=== PATIENT | male | born 1955 | race Caucasian/White ===

== ENCOUNTER 2018-04-03 20:49 | Emergency (ER) | payer SELFPAY ==
[2018-04-03] MEDS ORDERED: ONDANSETRON 4 MG/2 ML VIAL ONE (21:22)
[2018-04-03] MEDS ORDERED: MORPHINE 4 MG/ML SYR ONE (21:22)
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
--- NOTE | 2018-04-03 21:28 | RAD REPORT ---
EXAM DESCRIPTION: RAD - Chest Single View - 04/03/2018 9:15 pm CLINICAL HISTORY: Chest pain. COMPARISON: 12/01/2015 FINDINGS: Portable technique limits examination quality. The lungs are grossly clear. The heart is normal in size. No displaced fractures. IMPRESSION: No acute intrathoracic process suspected.
[2018-04-03] MEDS ORDERED: NA CHLORIDE 0.9% 1,000 ML ONE (21:33)
[2018-04-03] MEDS ORDERED: TETANUS & DIPHTHERIA TOX,ADULT 0.5 ML VIAL ONE (21:33)
[2018-04-03 21:36] LABS: Absolute Lymphocytes (CBC) 8.1 K/uL (0.7-4.9); Absolute Monocytes 0.7 K/uL (0.1-1.3); Absolute Neutrophil 6.5 K/uL (1.8-8.0); Basophils % 0.5 % (0-1.3); Eosinophils % 0.9 % (0-4.4); Hematocrit 41.8 % (39.6-49.0); Lymphocytes % 52.3 % (15.3-44.8); MCH 30.3 pg (27.0-35.0); MPV 8.9 fL (7.6-11.3); Monocytes % 4.3 % (3.3-12.3); RBC Red Blood Cell Count 4.65 M/uL (4.33-5.43)
[2018-04-03 21:43] LABS: Protime INR 0.94
[2018-04-03 21:49] LABS: Bicarbonate 28 mEq/L (21-31); Glucose Level 142 mg/dL (65-120); Potassium 4.3 mEq/L (3.6-5.0); Sodium Level 138 mEq/L (135-145)
[2018-04-03 21:55] LABS: ALT/SGPT 30 IU/L (10-60); AST/SGOT 33 IU/L (10-42); Albumin 4.2 g/dL (3.2-5.5); Alkaline Phosphatase 68 IU/L (42-121); BUN Blood Urea Nitrogen 21 mg/dL (6-20); Bilirubin Direct 0.1 mg/dL (0-0.2); Bilirubin Total 0.4 mg/dL (0.3-1.2); Creatine Phosphokinase 143 IU/L (22-269); Magnesium 2.2 mg/dL (1.8-2.5); Protein, Total 6.5 g/dL (6.0-8.3)
[2018-04-03 21:58] LABS: CKMB Creatine Kinase MB 2.6 ng/ml (0.3-4.0)
[2018-04-03] MEDS ORDERED: HYDROCODONE/APAP 5/325 MG TAB ONE (22:02)
[2018-04-03] MEDS ORDERED: LIDOCAINE 1% 20 ML MDV ONE (22:04)
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
--- NOTE | 2018-04-03 22:44 | EDPHYS ---
Physician Documentation [facility] Name: Rigoberto Olvera Age: 62 yrs Sex: Male : 1955 Arrival Date: 04/03/2018 Time: 20:59 Bed 5 Private MD: ED Physician Ubaldo Rios HPI: 04/03 21:04 This 62 yrs old Male presents to ER via Unassigned with unknown complaint. pkl 21:04 Details of fall: The patient fell from an upright position, while standing. Details of pkl fall: The patient fell from an upright position, Patient said he fell backward. Onset: The symptoms/episode began/occurred just prior to arrival. Associated injuries: The patient sustained injury to the head, contusion, laceration, of the occipital scalp. Historical: - Allergies: 21:06 PENICILLINS; aa1 21:06 Cephalexin; aa1 21:06 Zithromax; aa1 - Home Meds: 21:06 None [Active]; aa1 - PMHx: 21:06 None; aa1 - PSHx: 21:06 None; aa1 - Immunization history:: Last tetanus immunization: unknown. - Social history:: Smoking status: Patient/guardian denies using tobacco. - Immunization history: Last tetanus immunization: unknown. - Ebola Screening: : No symptoms or risks identified at this time. ROS: 21:04 Eyes: Negative for injury, pain, redness, and discharge, ENT: Negative for injury, pkl pain, and discharge, Neck: Negative for injury, pain, and swelling, Cardiovascular: Negative for chest pain, palpitations, and edema, Respiratory: Negative for shortness of breath, cough, wheezing, and pleuritic chest pain, Abdomen/GI: Negative for abdominal pain, nausea, vomiting, diarrhea, and constipation, Back: Negative for injury and pain, : Negative for injury, bleeding, discharge, and swelling, MS/Extremity: Negative for injury and deformity, Skin: Negative for injury, rash, and discoloration, Neuro: Negative for headache, weakness, numbness, tingling, and seizure. Exam: 22:35 Eyes: Pupils equal round and reactive to light, extra-ocular motions intact. Lids and pkl lashes normal. Conjunctiva and sclera are non-icteric and not injected. Cornea within normal limits. Periorbital areas with no swelling, redness, or edema. 22:35 Head/face: Noted is a laceration(s), 3 cm(s), of the occipital scalp. 22:35 ENT: Exam is negative for acute changes. 22:35 Neck: Exam negative for nuchal rigidity. 22:35 Chest/axilla: Exam negative for acute changes. 22:35 Cardiovascular: Rate: normal, Rhythm: regular. 22:35 Respiratory: the patient does not display signs of respiratory distress, Respirations: normal, Breath sounds: are clear throughout. 22:35 Abdomen/GI: Bowel sounds: normal, Palpation: abdomen is soft and non-tender, in all quadrants. 22:35 Back: Exam negative for acute changes. 22:35 : Exam negative for acute changes. 22:35 Musculoskeletal/extremity: Exam is negative for acute changes, injury. 22:35 Skin: Exam negative for rash. 22:35 Neuro: Orientation: appropriate for stated age, Mentation: is normal, Cranial nerves: grossly normal, Motor: is normal. Vital Signs: 21:00 BP 148 / 80; Pulse 74; Resp 18; Temp 97.9; Pulse Ox 100% on R/A; Weight 61.23 kg (R); aa1 Height 5 ft. 9 in. (175.26 cm) (R); Pain 9/10; 21:42 BP 154 / 81; Pulse 71; Resp 18; Pulse Ox 99% on R/A; Pain 8/10; aa1 22:24 BP 150 / 62; Pulse 79; Resp 18; Pulse Ox 100% on R/A; Pain 4/10; mg2 21:00 Body Mass Index 19.94 (61.23 kg, 175.26 cm) aa1 [place] Coma Score: 21:00 Eye Response: spontaneous(4). Verbal Response: oriented(5). Motor Response: obeys aa1 commands(6). Total: 15. 21:42 Eye Response: spontaneous(4). Verbal Response: oriented(5). Motor Response: obeys aa1 commands(6). Total: 15. 22:24 Eye Response: spontaneous(4). Verbal Response: oriented(5). Motor Response: obeys mg2 commands(6). Total: 15. Trauma Score (Adult): 21:00 Eye Response: spontaneous(1); Verbal Response: oriented(1); Motor Response: obeys aa1 commands(2); Systolic BP: > 89 mm Hg(4); Respiratory Rate: 10 to 29 per min(4); [place] Score: 15; Trauma Score: 12 Laceration: 22:35 Wound Repair of 3cm ( 1.2in ) subcutaneous laceration to occipital scalp. Minimal pkl bleeding noted.. Distal neuro/vascular/tendon intact. Anesthesia: Local anesthetic administered with 3 mls of 1% lidocaine. Wound prep: Extensive cleansing by me. Skin closed with 3 4-0 Prolene using simple sutures and sterile technique. Dressed with Neosporin. Patient tolerated well. MDM: 21:01 Patient medically screened. pkl 22:38 Data reviewed: vital signs, nurses notes, lab test result(s), EKG, radiologic studies, pkl CT scan, plain films. 04/03 21:07 Order name: Basic Metabolic Panel; Complete Time: 22:00 pkl 12 21:07 Order name: BNP; Complete Time: 22:00 pkl 04/03 21:07 Order name: CBC with Diff; Complete Time: 21:49 pkl 04/03 21:07 Order name: Ckmb; Complete Time: 22:00 pkl 12 21:07 Order name: CPK; Complete Time: 22:00 pkl 12 21:07 Order name: LFT's; Complete Time: 22:00 pkl 12 21:07 Order name: Magnesium; Complete Time: 22:00 pkl 12 21:07 Order name: PT-INR; Complete Time: 22:00 pkl 12 21:07 Order name: Ptt, Activated; Complete Time: 22:00 pkl 12 21:07 Order name: Troponin (emerg Dept Use Only); Complete Time: 22:00 pkl 12 21:07 Order name: XRAY Chest (1 view); Complete Time: 21:49 pkl /12 21:08 Order name: CT Head C Spine; Complete Time: 21:49 pkl 12 21:07 Order name: EKG; Complete Time: 21:08 pkl 12 21:07 Order name: Cardiac monitoring; Complete Time: 21:43 pkl 04/03 21:07 Order name: EKG - Nurse/Tech; Complete Time: 21:43 pkl 04/03 21:07 Order name: IV Saline Lock; Complete Time: 21:43 pkl 06 21:07 Order name: Labs collected and sent; Complete Time: 21:43 pkl 04/03 21:07 Order name: O2 Per Protocol; Complete Time: 21:43 pkl 06 21:07 Order name: O2 Sat Monitoring; Complete Time: 21:43 pkl Administered Medications: 21:20 Drug: Zofran 4 mg Route: IVP; Site: left antecubital; aa1 23:29 Follow up: Response: No adverse reaction; Nausea is decreased mg2 21:22 Drug: morphine 2 mg Route: IVP; Site: left antecubital; aa1 22:02 Follow up: Response: No adverse reaction; Pain is unchanged, physician notified aa1 21:48 Drug: Tetanus-Diphtheria Toxoid Adult 0.5 ml {[employer]: [employer]. Exp: mg2 06/21/2020. Lot #: [id number]. } Route: IM; Site: right deltoid; 23:29 Follow up: Response: No adverse reaction mg2 21:48 Drug: NS 0.9% 1000 ml Route: IV; Rate: 100 ml/hr; Site: right antecubital; mg2 23:29 Follow up: Response: No adverse reaction; IV Status: Infusion continued upon transfer mg2 22:02 Drug: [place] 5 mg-325 mg 1 tabs Route: PO; aa1 23:29 Follow up: Response: No adverse reaction; Pain is decreased mg2 Disposition: 04/03/18 22:43 Transfer ordered to [facility]. Diagnosis is Head injury. Laceration scalp. Intracranial bleed. S/P Fall. - Reason for transfer: Higher level of care. - Accepting physician is Dr. Lee. - Condition is Stable. - Problem is new. - Symptoms have improved. Signatures: Dispatcher [employer] EDMS Hermila Echevarria RN RN aa1 Ubaldo Rios MD MD pkl Davin Vincent RN RN mg2 Corrections: (The following items were deleted from the chart) 23:30 22:43 04/03/2018 22:43 Transfer ordered to [facility]. mg2 Diagnosis is Head injury. Laceration scalp. Intracranial bleed. S/P Fall. Reason for transfer: Higher level of care. Accepting physician is Dr. Lee. Condition is Stable. Problem is new. Symptoms have improved. pkl
--- NOTE | 2018-04-04 06:20 | EKG ---
Test Date: 2018-04-03 Test Time: 21:38:48 Merchandise Clerk: LEVAR MEASUREMENT RESULTS: Intervals: Rate: 71 TN: 164 QRSD: 88 QT: 396 QTc: 430 Coleman: P: 75 TN: 164 QRS: 70 T: 65 INTERPRETIVE STATEMENTS: Normal sinus rhythm Minimal voltage criteria for LVH, may be normal variant Borderline ECG Compared to ECG 12/01/2015 20:56:18 No significant changes Electronically Signed On 04-04-18 06:19:26 CDT by Kristian Saunders
== END 2018-04-03 23:30 | disposition short-term general hospital (02) ==
LOC: ER 20:49
PROC: 0JQ00ZZ Repair Scalp Subcutaneous Tissue and Fascia, Open Approach (ICD-10-PCS; principal; 2018-04-03)
DX: S06.300A Unspecified focal traumatic brain injury without loss of consciousness, initial encounter (principal); W18.39XA Other fall on same level, initial encounter; Y93.89 Activity, other specified; Y92.9 Unspecified place or not applicable; Z88.1 Allergy status to other antibiotic agents; Z88.3 Allergy status to other anti-infective agents; Z88.0 Allergy status to penicillin; Z23 Encounter for immunization
CPT/HCPCS: 36415; 70450; 71045; 72125; 80048; 80076; 82550; 82553; 83735; 83880; 84484; 85025; 85610; 85730; 90714; 93005; 96361; 96374; 96375; 99285; J2405; J7030

== ENCOUNTER 2019-09-27 19:57 | Emergency (ER) | payer SELFPAY ==
--- OUTSIDE RECORDS SUMMARY | 2019-09-27 19:58 | XMS REPORT ---
:1955 Author Organization [facility] Address [address] [place]. [address] [place] [id number] Care Team Providers Name Role Phone Unavailable Unavailable Unavailable Problems This patient has no known problems. Allergies, Adverse Reactions, Alerts This patient has no known allergies or adverse reactions. Medications This patient has no known medications.
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
[2019-09-27] MEDS ORDERED: KETOROLAC 30 MG/ML INJ ONE (22:22)
[2019-09-27] MEDS ORDERED: NA CHLORIDE 0.9% 1,000 ML ONE (22:22)
[2019-09-27] MEDS ORDERED: ONDANSETRON 4 MG/2 ML VIAL ONE (22:22)
[2019-09-27] MEDS ORDERED: MORPHINE 4 MG/ML SYR ONE (22:22)
[2019-09-27 23:05] LABS: Absolute Lymphocytes (CBC) 4.4 K/uL (0.7-4.9); Basophils % 0.2 % (0-1.3); Hematocrit 42.2 % (39.6-49.0); Lymphocytes % 40.8 % (15.3-44.8); MPV 8.8 fL (7.6-11.3); RBC Red Blood Cell Count 4.67 M/uL (4.33-5.43)
[2019-09-27 23:14] LABS: ALT/SGPT 50 U/L (12-78); AST/SGOT 34 U/L (15-37); Albumin 3.8 g/dL (3.4-5.0); Alkaline Phosphatase 78 U/L (45-117); BUN Blood Urea Nitrogen 31 mg/dL (7-18); Bicarbonate 29 mmol/L (21-32); Bilirubin Direct 0.1 mg/dL (0-0.2); Bilirubin Total 0.5 mg/dL (0.2-1.0); Glucose Level 96 mg/dL (74-106); Lipase 112 U/L (73-393); Potassium 3.3 mmol/L (3.5-5.1); Protein, Total 6.6 g/dL (6.4-8.2); Sodium Level 141 mmol/L (136-145)
[2019-09-28 01:09] VITALS: TEMP 97.5
[2019-09-28 01:14] VITALS: BP 140/99; O2SAT 99
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
--- NOTE | 2019-09-28 07:28 | RAD REPORT ---
EXAM DESCRIPTION: RAD - Lumbar Spine 3 Views - 09/27/2019 10:30 pm CLINICAL HISTORY: Back pain FINDINGS: The alignment of the lumbar spine is satisfactory. No fracture or dislocation is seen.
--- NOTE | 2019-09-28 10:49 | RAD REPORT ---
EXAM DESCRIPTION: Sara Single View09/27/2019 10:30 pm CLINICAL HISTORY: Chest pain COMPARISON: 2018 FINDINGS: The lungs appear clear of acute infiltrate. The heart is normal size IMPRESSION: No acute abnormalities displayed
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
== END 2019-09-28 00:10 | disposition short-term general hospital (02) ==
LOC: ER 19:57
DX: S12.200A Unspecified displaced fracture of third cervical vertebra, initial encounter for closed fracture (principal); S16.1XXA Strain of muscle, fascia and tendon at neck level, initial encounter; S50.01XA Contusion of right elbow, initial encounter; S60.211A Contusion of right wrist, initial encounter; E87.6 Hypokalemia; V23.4XXA Motorcycle driver injured in collision with car, pick-up truck or van in traffic accident, initial encounter; Z72.0 Tobacco use; Z88.0 Allergy status to penicillin; Z88.1 Allergy status to other antibiotic agents
CPT/HCPCS: 36415; 70450; 71045; 71260; 72100; 72125; 74177; 80048; 80076; 83690; 85025; 86850; 86900; 86901; 96361; 96374; 96375; 99285; J2405; J7030; Q9967

== ENCOUNTER 2022-06-23 03:16 | Emergency (ER) | payer OTHER, SELFPAY ==
--- OUTSIDE RECORDS SUMMARY | 2022-06-23 03:19 | XMS REPORT | Continuity of Care Document ---
:1955 Author Organization [facility] t Address [facility] Fredi Zhao [address] [place] [address] Care Team Providers Name Role Phone PCP, PATIENT DOES NOT HAVE A Primary Care Physician Unavaila ble JEAN FERNANDO Attending Clinician Unavailable Jean Fernando MD Attending Clinician JEAN FERNANDO Admitting Clinician Unavailable Payers Payer Name Policy Type Policy Number Effective Date Expiration Date [facility] [id number] 2022 CUSTODIAL 00:00:00 Problems Condition Condition Condition Status Onset Resolution Last Treating Co mments Source Name Details Category Date Date Treatment Clinician Date Elevated Elevated Disease Active Unive rs white white 3- [place] [facility] Pituitary Pituitary Disease Active Uni vers tumor tumor 01-12 ity of 00:00: [place] 00 Medical Branch Hypothyroi Hypothyroi Disease Active U nivers dism dism 01-12 ity of 00:00: [place] 00 Medical Branch Allergies, Adverse Reactions, Alerts Allergy Allergy Status Severity Reaction(s) Onset Inactive Treating Comm ents Source Name Type Date Date Clinician Penicill Propensi Active Other - See U nivers in ty to comments 04-22 ity of adverse 00:00: [place] reaction 00 Medical s Branch PENICILL DRUG Active Other-Cmnt Univ ers IN INGREDI 04-22 ity of 00:00: [place] 00 Medical Branch CEPHALEX DRUG Active Rash Univers IN INGREDI 2 ity of 00:00: [place] 00 Medical Branch AZITHROM DRUG Active Rash Univers YCIN INGREDI 2 ity of 00:00: [place] 00 Medical Branch Cephalex Drug Active Rash Univers in Intolera 2-12 ity of nce 00:00: [place] 00 Medical Branch Azithrom Drug Active Rash Univers ycin Intolera 2-12 ity of nce 00:00: [place] 00 Medical Branch Penicill Propensi Active Rash Univer s ins ty to 2-10 ity of adverse 00:00: [place] reaction 00 Medical s to Branch drug PENICILL Drug Active High Rash Univers INS Class 2-10 ity of 00:00: [place] 00 Medical Branch Social History Social Habit Start Date Stop Date Quantity Comments Source Exposure to 2022-04-12 2022-04-22 Not sure [facility] SARS-CoV-2 (event) 00:00:00 02:50:00 Medica l Branch Alcohol intake 2016-08-29 2016-08-29 0 /d [facility] 00:00:00 00:00:00 Medical Branch Sex [facility]igned At [birth year] [facility] [place] 00:00:00 00:00:00 Medical Branch Smoking Status Start Date Stop Date Source Never smoker [facility] Branch Medications Ordered Filled Start Stop Current Ordering Indication Dosage Frequency Signature Comments Components Source Medication Medication Date Date Medication? Clinician (SIG) Name Name acetaminoph 2021- No 975mg 975 mg, U nivers en 04-22 Oral, ity of (TYLENOL) 10:00: 08:55 ONCE, 1 [place] tablet 975 [place] :00 dose, On Medic al mg 04/22/22 Branch at 0500, RICHARD clindamycin 2021- Yes [id number] 300mg Take 1 Univers 300 mg 04-22 capsule by ity of capsule 00:00: 04:59 mouth 4 [place] 00 :00 (four) Medical times Branch daily for 7 days. paroxetine 2017-10 Yes [id number] 60mg Take 2 U nivers 30 mg 2-17 tablets by ity of tablet 00:00: mouth [place] 00 daily. Medical Branch traZODONE Yes [id number] Take 1-2 Univers 50 mg 6-15 tabs at ity of tablet 00:00: night as [place] 00 needed for Medical sleep Branch hydrOXYzine Yes [id number] 50mg Take 1 Univers 50 mg 8-29 tablet by ity of tablet 00:00: mouth [place] 00 every 6 Medical (six) Branch hours as needed for Anxiety. traMADOL 2015-10 Yes 50mg Take 1 Univers (ULTRAM) 50 1-07 tablet by ity of mg tablet 00:00: mouth [place] 00 every 6 Medical (six) Branch hours as needed for Pain unrelieved by non-narcot ic analgesics for up to 120 doses. naproxen 2014-10 Yes [id number] 500mg Take 1 Tab Univers (NAPROSYN) 1-10 by mouth 2 ity of 500 mg 00:00: (two) [place] tablet 00 times Medical daily with Branch meals. topiramate 2014-10 Yes [id number] Take 25 mg Univers (TOPAMAX) 1-10 po daily ity of 50 mg 00:00: for 1 [place] tablet 00 week, then Medical 25 mg po Branch bid for 1 month, then 25 mg po in am and 50 mg po qhs for 1 month, then 5o mg po bid. Butalbital- Yes 50mg Take 50 mg Univers Acetaminoph 5-13 by mouth 2 it y of en-Caff 00:00: (two) [place] (FIORICET) 00 times Medical 50-300-40 daily as Branch mg Cap needed for Headache (Take no more then 2 days a week.No more then 18 caps a month.). Immunizations Ordered Filled Immunization Date Status Comments [facility] e Immunization Name Name Td 2022-04-22 Completed [facility] 00:00:00 [facility] Vital Signs Vital Name Observation Time Observation Value Comments Source Systolic blood 2022-04-22 10:00:00 130 [facility]Hg[facility] Diastolic blood 2022-04-22 10:00:00 68 mm[Hg] [facility] Heart rate 2022-04-22 10:00:00 89 /min [facility] Respiratory rate 2022-04-22 10:00:00 18 /min [facility] Oxygen saturation in 2022-04-22 10:00:00 96 /min [facility] Arterial blood by [facility] Pulse oximetry [place] Body temperature 2022-04-22 07:52:00 36.61 Rody [facility] Body height 2022-04-22 07:52:00 175.3 cm [facility] Body weight 2022-04-22 07:52:00 60.328 kg [facility] BMI 2022-04-22 07:52:00 19.64 kg/m2 [facility] Procedures Procedure Date / Time Performed Performing Clinician Sourc e CT RESUP NPTERF WND 2022-04-22 10:10:16 Jean Fernando [facility] BODY 2.6-7.5 CM [facility] Branch CT CERVICAL SPINE WO 2022-04-22 08:43:00 eJan Fernando [facility] CONTRAST [facility] CT 2022-04-22 08:43:00 Jean Fernando [place] MAXILLOFACIAL/MANDIBL Medical Br anch E WO CONTRAST CT HEAD WO CONTRAST 2022-04-22 08:43:00 Jean Fernando [facility] Encounters Start End Encounter Admission Attending Care Care Encounter Source Date/Time Date/Time Type Type Clinicians Facility Department ID 2022-04-22 2022-04-22 Emergency X KASSIE NHKRYSTAL ERT [id number] Univers 02:54:00 05:35:00 JEAN lindsey [facility] 2022-04-22 2022-04-22 Emergency Kassie NHKRYSTAL [id number] Univers 02:54:00 05:35:00 Jean GAITAN [id number] i [facility] [id number] [facility] [id number] [facility] 084 Branch Results This patient has no known results.
--- NOTE | 2022-06-23 04:58 | ER ---
Nurse's Notes [facility] Name: Rigoberto Olvera Age: 67 yrs Sex: Male : 1955 Arrival Date: 06/23/2022 Time: 03:20 Bed 8 Private MD: Diagnosis: Headache Presentation: 06/23 03:42 Chief complaint: Patient states: States "I have a tumor on my pituitary gland, they 3 told me to get an MRI every year but I haven't had insurance until now" c/o of H/A, states "It's been keeping me up at night". Coronavirus screen: Vaccine status: Patient reports being unvaccinated. At this time, the client does not indicate any symptoms associated with coronavirus-19. Ebola Screen: No symptoms or risks identified at this time. Initial Sepsis Screen: Does the patient meet any 2 criteria? No. Patient's initial sepsis screen is negative. Does the patient have a suspected source of infection? No. Patient's initial sepsis screen is negative. Risk Assessment: Do you want to hurt yourself or someone else? Patient reports no desire to harm self or others. Onset of symptoms is unknown. 03:42 Method Of Arrival: Ambulatory ll3 03:42 Acuity: JAVIER 3 ll3 Triage Assessment: 03:45 Headache History: The patient has had previous headaches and this one is similar to ll3 previous episodes. General: Appears uncomfortable, Behavior is calm, cooperative. Pain: Complains of pain in H/A Pain currently is 7 out of 10 on a pain scale. Pain: Pain began States H/A for past 20 years but the past few months they have been more frequent Also complains of sleeplessness. Neuro: Level of Consciousness is awake, alert, obeys commands, Oriented to person, place, time, situation, Reports headache. Derm: Skin is pink, warm \\T\\ dry. Musculoskeletal: Circulation, motion, and sensation intact. Historical: - Allergies: 03:45 No Known Allergies; ll3 - Immunization history:: Client reports having NOT received the Covid vaccine. - Social history:: Smoking status: Patient denies any tobacco usage or history of. - Family history:: not pertinent. - Hospitalizations: : No recent hospitalization is reported. Screenin:02 Abuse screen: Denies threats or abuse. Denies injuries from another. Nutritional lg3 screening: No deficits noted. Tuberculosis screening: No symptoms or risk factors identified. Fall Risk None identified. Assessment: 04:02 General: Appears in no apparent distress. comfortable, unkempt, Behavior is calm, lg3 cooperative. Pain: Complains of pain in head Pain currently is 7 out of 10 on a pain scale. Quality of pain is described as heavy, pressure, squeezing. Neuro: No deficits noted. Level of Consciousness is awake, alert, obeys commands, Oriented to person, place, time, situation. Cardiovascular: No deficits noted. Denies chest pain, shortness of breath, Capillary refill < 3 seconds Clubbing of nail beds is absent JVD is absent Patient's skin is warm and dry. Respiratory: No deficits noted. Airway is patent Trachea midline Respiratory effort is even, unlabored, Respiratory pattern is regular, symmetrical, Breath sounds are clear bilaterally. GI: No deficits noted. No signs and/or symptoms were reported involving the gastrointestinal system. Abdomen is flat, non-distended. : No deficits noted. No signs and/or symptoms were reported regarding the genitourinary system. EENT: No deficits noted. No signs and/or symptoms were reported regarding the EENT system. Derm: No deficits noted. No signs and/or symptoms reported regarding the dermatologic system. Skin is intact, is healthy with good turgor, Skin is dry, Skin temperature is warm. Musculoskeletal: No deficits noted. No signs and/or symptoms reported regarding the musculoskeletal system. Circulation, motion, and sensation intact. Range of motion: intact in all extremities. 04:04 General: pt reports having a continuous headache for the past 20 years. . lg3 04:50 Reassessment: Patient appears in no apparent distress at this time. No changes from lg3 previously documented assessment. Patient and/or family updated on plan of care and expected duration. Pain level reassessed. Patient is alert, oriented x 3, equal unlabored respirations, skin warm/dry/pink. pt quietly resting at this time. Vital Signs: 03:42 BP 111 / 95; Pulse 82; Resp 17; Temp 97.9(O); Pulse Ox 100% on R/A; Weight 63.5 kg (R); ll3 Height 5 ft. 9 in. (175.26 cm) (R); Pain 7/10; 05:20 BP 116 / 84; Pulse 81; Resp 17 S; Pulse Ox 100% on R/A; lg3 03:42 Body Mass Index 20.67 (63.50 kg, 175.26 cm) ll3 [place] Coma Score: 04:56 Eye Response: spontaneous(4). Verbal Response: oriented(5). Motor Response: obeys rn commands(6). Total: 15. ED Course: 03:20 Patient arrived in ED. ja2 03:23 Emerson Fenton MD is Attending Physician. rn 03:24 Yolie Qureshi, GARO is Primary Nurse. lg3 03:45 Triage completed. ll3 03:45 Arm band placed on Patient placed in an exam room, on a stretcher, on pulse oximetry. ll3 03:59 CT Head Brain wo Cont In Process Unspecified. EDMS 04:02 Patient has correct armband on for positive identification. Bed in low position. Call lg3 light in reach. Side rails up X 1. Client placed on continuous cardiac and pulse oximetry monitoring. NIBP monitoring applied. Door closed. Noise minimized. Warm blanket given. 05:19 No provider procedures requiring assistance completed. Patient did not have IV access lg3 during this emergency room visit. Administered Medications: 05:20 Drug: Tylenol 1000 mg Route: PO; lg3 05:21 Follow up: Response: No adverse reaction lg3 Medication: 05:20 VIS not applicable for this client. lg3 Outcome: 04:57 Discharge ordered by . rn 05:19 Discharged to Unknown lg3 05:19 Condition: stable 05:19 Discharge instructions given to patient, Instructed on discharge instructions, follow up and referral plans. Demonstrated understanding of instructions, follow-up care. 05:21 Patient left the ED. lg3 Signatures: Dispatcher [employer] EDPR Emerson Fenton MD MD rn Gibson, Lacie, RN RN lg3 Alecia Bridges [facility] John Marquez RN RN ll3
--- NOTE | 2022-06-23 04:58 | EDPHYS ---
Physician Documentation [facility] Name: Rigoberto Olvera Age: 67 yrs Sex: Male : 1955 Arrival Date: 06/23/2022 Time: 03:20 Bed 8 Private MD: ED Physician Emerson Fenton HPI: 06/23 03:59 This 67 yrs old Male presents to ER via Ambulatory with complaints of Headache. rn 03:59 The patient complains of pain to the top of head. The patient describes the headache as rn aching. Onset: The symptoms/episode began/occurred 20 year(s) ago. Associated signs and symptoms: Pertinent positives: This patient does not have any pertinent positive signs or symptoms associated with a headache. Pertinent negatives: altered mental status, fever, neck stiffness, rash, vision changes, vision loss, vomiting, weakness, vertigo. Severity of symptoms: At its worst the pain was moderate, "similar to past headaches", in the emergency department the pain has improved. The symptoms are alleviated by nothing. the symptoms are aggravated by nothing. The patient has experienced similar episodes in the past, chronically. The patient has not recently seen a physician. Pt reports headaches for 20 years, getting worse over last 2 years. No recent injury. No focal neuro complaints. No vision changes or loss. Told 18 years ago that he has a pituitary tumor but did not need surgery. Hasn't had an MRI in a while so came in to see if we could evaluate his tumor. No new symptoms. . Historical: - Allergies: 03:45 No Known Allergies; ll3 - Immunization history:: Client reports having NOT received the Covid vaccine. - Social history:: Smoking status: Patient denies any tobacco usage or history of. - Family history:: not pertinent. - Hospitalizations: : No recent hospitalization is reported. ROS: 03:59 Constitutional: Negative for fever, chills, and weight loss, Eyes: Negative for injury, rn pain, redness, and discharge, ENT: Negative for injury, pain, and discharge, Neck: Negative for injury, pain, and swelling, Cardiovascular: Negative for chest pain, palpitations, and edema, Respiratory: Negative for shortness of breath, cough, wheezing, and pleuritic chest pain, Abdomen/GI: Negative for abdominal pain, nausea, vomiting, diarrhea, and constipation, Back: Negative for injury and pain, MS/Extremity: Negative for injury and deformity, Skin: Negative for injury, rash, and discoloration, Neuro: Negative for weakness, numbness, tingling, and seizure. Exam: 03:59 Constitutional: This is a well developed, well nourished patient who is awake, alert, rn and in no acute distress. Head/Face: Normocephalic, atraumatic. Eyes: Pupils equal round and reactive to light, extra-ocular motions intact. Neck: Trachea midline, no thyromegaly or masses palpated, and no cervical lymphadenopathy. Supple, full range of motion without nuchal rigidity, or vertebral point tenderness. No Meningismus. Cardiovascular: Regular rate and rhythm. No pulse deficits. Respiratory: No increased work of breathing, no retractions or nasal flaring. Abdomen/GI: Soft, non-tender Skin: Warm, dry MS/ Extremity: Pulses equal, no cyanosis. Neurovascular intact. Full, normal range of motion. Equal circumference. Neuro: Awake and alert, GCS 15, oriented to person, place, time, and situation. Cranial nerves II-XII grossly intact. Motor strength 5/5 in all extremities. Sensory grossly intact. Cerebellar exam normal. Normal gait. Vital Signs: 03:42 BP 111 / 95; Pulse 82; Resp 17; Temp 97.9(O); Pulse Ox 100% on R/A; Weight 63.5 kg (R); ll3 Height 5 ft. 9 in. (175.26 cm) (R); Pain 7/10; 05:20 BP 116 / 84; Pulse 81; Resp 17 S; Pulse Ox 100% on R/A; lg3 03:42 Body Mass Index 20.67 (63.50 kg, 175.26 cm) ll3 [place] Coma Score: 04:56 Eye Response: spontaneous(4). Verbal Response: oriented(5). Motor Response: obeys rn commands(6). Total: 15. MDM: 03:23 Patient medically screened. rn 04:56 Differential diagnosis: migraine, neoplasm, tension headache, vasomotor headache. Data rn reviewed: vital signs, nurses notes, radiologic studies, CT scan, and as a result, I will discharge patient. Counseling: I had a detailed discussion with the patient and/or guardian regarding: the historical points, exam findings, and any diagnostic results supporting the discharge/admit diagnosis, radiology results, the need for outpatient follow up, to return to the emergency department if symptoms worsen or persist or if there are any questions or concerns that arise at home. Special discussion: I discussed with the patient/guardian in detail that at this point there is no indication for admission to the hospital. It is understood, however, that if the symptoms persist or worsen the patient needs to return immediately for re-evaluation. Based on the history and exam findings, there is no indication for further emergent testing or inpatient evaluation. I discussed with the patient/guardian the need to see the primary care provider for further evaluation of the symptoms. 04:56 Special discussion: Further emergent ED testing is not indicated at this point in time. rn I discussed with the patient/guardian in detail the need to arrange with the PCP or specialist further outpatient testing, MRI. 06/23 03:39 Order name: CT Head Brain wo Cont rn Administered Medications: 05:20 Drug: Tylenol 1000 mg Route: PO; lg3 05:21 Follow up: Response: No adverse reaction lg3 Disposition Summary: 06/23/22 04:57 Discharge Ordered Location: Home rn Problem: chronic rn Symptoms: are unchanged rn Condition: Stable rn Diagnosis - Headache rn Followup: rn - With: Private Physician - When: As needed - Reason: Recheck today's complaints, Re-evaluation by your physician Discharge Instructions: - Discharge Summary Sheet rn - General Headache Without Cause rn Forms: - Medication Reconciliation Form rn - Thank You Letter rn - Antibiotic internet and e business project manager - Prescription Opioid Use rn Signatures: Dispatcher [employer] EDMS Emerson Fenton MD MD rn Gibson, Lacie RN RN lg3 John Marquez RN RN ll3 Moni Martinez, RN RN vc1
[2022-06-23] MEDS ORDERED: ACETAMINOPHEN 500 MG TAB ONE (05:18)
[2022-06-23 07:03] VITALS: TEMP 97.9; O2SAT 100
[2022-06-23 07:05] VITALS: BP 116/84
--- NOTE | 2022-06-23 14:38 | RAD REPORT ---
EXAM DESCRIPTION: CT - Head Brain Wo Cont - 06/23/2022 5:38 am CLINICAL HISTORY: The patient is 67 years old and is Male; headache, reports known pituitary tumor [facility] MAIN TECHNIQUE: Axial computed tomography images of the head/brain without intravenous contrast. Sagitt al and coronal reformatted images were created and reviewed. This CT exam was performed using one o r more of the following dose reduction techniques: automated exposure control, adjustment of the mA and/or kV according to patient size, and/or use of iterative reconstruction technique. COMPARISON: 09/27/2019 CT had report (images unavailable) FINDINGS: BRAIN: Mild white matter changes are noted. No hemorrhage. VENTRICLES: Unremarkable. No ventriculomegaly. BONES/JOINTS: Unremarkable. No acute fracture. SOFT TISSUES: Unremarkable. SINUSES: Rightward nasal septal deviation and spur. Left-sided mitzy bullosa normal variant anatom y. MASTOID AIR CELLS: Unremarkable as visualized. No mastoid effusion. SELLA: A definite pituitary gland lesion is not identified on the current exam. The previously desc ribed 2 mm lesion is likely below the resolution of this study (5 mm slices). IMPRESSION: No acute findings in the head/brain. Senescent changes. Electronically signed by: Mars Mondragon MD 06/23/2022 4:51 AM CDT Due to temporary technical issues with the PACS/Fluency reporting system, reports are being signed by the in house radiologists without review as a courtesy to insure prompt reporting. The interpreting radiologist is fully responsible for the content of the report.
== END 2022-06-23 05:21 | disposition home or self-care (01) ==
LOC: ER 03:16
DX: R51.9 Headache, unspecified (principal)
CPT/HCPCS: 70450; 99283